=== PATIENT | female | born 1970 | race Caucasian/White ===

== ENCOUNTER 2020-09-29 17:03 | Emergency (ER) | payer OTHER, MEDICAID ==
[~2020-09-29] VITALS: Ht 157.5 cm; Wt 60.8 kg
[2020-09-29] MEDS ORDERED: IBU600 M2 PO (19:52)
[2020-09-29] MEDS ORDERED: FLE10 PO (19:52)
[2020-09-29] MEDS ORDERED: ZOFRAN4 M3 PO (19:53)
[2020-09-29 20:05] VITALS: BP 140/81
== END 2020-09-29 20:10 | disposition home or self-care (01) ==
LOC: ED 17:03
DX: S09.90XA Unspecified injury of head, initial encounter (principal); Z90.710 Acquired absence of both cervix and uterus; Z88.0 Allergy status to penicillin; Z98.890 Other specified postprocedural states; W18.30XA Fall on same level, unspecified, initial encounter; Y93.89 Activity, other specified; Y92.89 Other specified places as the place of occurrence of the external cause; Y99.8 Other external cause status
CPT/HCPCS: Q0162